=== PATIENT | female | born 1980 | race Caucasian/White ===

== ENCOUNTER 2022-04-02 14:00 | Inpatient (IN) | payer OTHER, SELFPAY ==
[2022-04-02] VITALS (17 sets, daily range): BP systolic 112–133; BP diastolic 66–83; PULSE 66–83; RESP 16–18; TEMP 36.3–37.2; O2SAT 96; BMI 30.9
[2022-04-02] MEDS: LACTATED RINGERS 1000 ML 1,000 ML 125 ML IV (14:23)
[2022-04-02] MEDS: AMPICILLIN 2 GM in 0.9 % SODIUM CHLORIDE Mini-bag 100 ML IVPB (14:23)
--- NOTE | 2022-04-02 14:42 | PM.OBHPLI ---
OB - H&P: HPI Labor/Induction History of Present Illness Time Seen by Provider: 14:32 Date Seen: 04/02/22 Chief Complaint: The patient is a 41 year old 4 para 3 at 41 and 2 weeks gestation dating done by [facility] conception date. Chief complaint: Maternity : 4 Para: 3 Date of last menstrual period: 06/24/21 Estimated date of delivery: 03/31/22 Gestational age based on last menstrual period: 40 Narrative: Raeann Avila is a 41 year old female at 41wks and 2 days based on early ultrasound and date of conception. History of Present Narrative: She [facility]. It essentially confirmed her EDC. She presented for 1st OB visit at 12 weeks 5 days gestation. Labs Blood type: O (+) positive Rubella: immune RPR/VDLR: nonreactive GBS status: positive HBsAG: negative Review of Systems Status of ROS: Reports: 6 or more systems reviewed and unremarkable except as noted in History and below Narrative: Contractions started earlier today have started picking up in intensity Meds Home Medications and Allergies Allergies Allergy/AdvReac Type Severity Reaction Status Date / Time No Known Drug Allergies Allergy Verified 04/02/22 14:45 OB - H&P: Exam Physical Exam: Vital signs: Pulse BP 83 127/66 04/02/22 14:22 04/02/22 14:22 Narrative: G P now 41 at 2 weeks gestation admitted for onset of labor History: regular uncomplicated care. Group B strep positive She is currently intact has received her antibiotics dose 1. Currently walking around the room with IV HEENT: Eyes: no scleral icterus redness Ears: normal external ears Nose: no drainage Neck: normal Heart RRR no murmur Lungs: clear Skin: pink exam she is reported to be 6-7 cm on initial admission exam by nurse. Ext: no swelling Mental status: appropriate OB - Problem Based A/P Additional Plan (1) Spontaneous onset of labor: Status: Acute Plan Expected management. First dose of antibiotics has been given. She plans to have natural delivery. Delivery/Labor/Induction Plan Plan: expectant management
[2022-04-02 15:23] LABS: SARS PCR* Negative SARS-CoV-2 (Negative)
[2022-04-02] MEDS: OXYTOCIN 30 unit/500 ML in NS 30 UNIT/500 ML BAG 300 UNIT IVPB (16:49)
--- NOTE | 2022-04-02 17:12 | PM.OBPRCVD ---
Procedure Delivery date: 04/02/22 Procedure Done: Global Narrative: The patient is a 41 year-old G 4 admitted on 04/02/2022 at 40 Weeks, 2 Days gestation for onset of labor.? Cervical exam on admission was 7 cm with membranes intact in vertex presentation.? Contractions were approximately every [4] minutes.? heart rate demonstrated a category 1 tracing.? SROM occurred at 1641 with clear fluid. ? Labor Analgesia:? None ? Pitocin:? Yes after delivery of infant ? Labor onset:? 04/02/2022 at 12:00 p.m. ? Complete:? 04/02/2022 at 4:43 p.m. ? Pushing:? 04/02/2022 at 4:43 p.m. ? At 16:48 on 04/02/2022 a viable male infant delivered in vertex presentation over intact perineum via spontaneous vaginal delivery.? Infant was placed on maternal abdomen.? Cord was clamped and cut after a 30-60 second delay.? Nose and mouth were bulb suctioned.? weight pending.? 8 at 1 minute and 9 at 5 minutes.? Shoulder dystocia: no.? Nuchal cord: no. ? Placenta delivered spontaneously and complete at 1653 with a 3 vessel cord. ? Mother and infant were stable after delivery. ? Lacerations:? Superficial vaginal and labial bilaterally no repair needed. ? Blood loss: 100 mL. Blood loss measurement type: QBL ? Sponge and needles counts are correct.
[2022-04-02] MEDS: IBUPROFEN 600 MG TABLET PO (19:57)
[2022-04-03 00:30] VITALS: BP 134/76; PULSE 70; RESP 16; TEMP 36.6; O2SAT 97
[2022-04-03] MEDS: ACETAMINOPHEN 500 MG TABLET 1000 MG PO (00:30)
[2022-04-03] MEDS: IBUPROFEN 600 MG TABLET PO ×2 (05:37→17:56)
[2022-04-03 05:45] VITALS: BP 114/79; PULSE 72; RESP 16; TEMP 36.8; O2SAT 97
[2022-04-03 07:22] LABS: Hemoglobin* 10.4 gm/dL (12.0-16.0)
[2022-04-03 07:58] VITALS: BP 107/73; PULSE 66; RESP 16; TEMP 36.4; O2SAT 95
--- NOTE | 2022-04-03 08:13 | P.OBPN_ITS ---
OB - PN:Subj Subjective Time Seen by Provider: 08:13 Date Seen: 04/03/22 Patient comments OB post-: no complaints and pain well controlled [place] infant status: and doing well feeding status: exclusively Narrative: Patient feels things are going well. Passed a few clots yesterday but feels bleeding is more appropriate today. Pain is mostly cramping pain, especially with nursing. OB - PN: Obj Exam Physical Exam: Vital signs: Temp Pulse Resp BP Pulse Ox O2 Del Method 97.6 F 66 16 107/73 95 04/03/22 07:58 04/03/22 07:58 04/03/22 07:58 04/03/22 07:58 04/03/22 07:58 04/03/22 07:58 Constitutional: Constitutional: no acute distress, average body habitus and cooperative Routine Respiratory Exam: Respiratory: Present CTA bilaterally; Absent crackles, rales or wheezes Routine Cardiovascular Exam: Cardiovascular: Present RRR, S1 and S2; Absent murmur Routine Abdominal Exam: Abdominal: Present normal bowel sounds Fundus: Present firm Comments: fundus at 1 below umbilicus Routine Skin Exam: Skin: Absent rash Routine Neurological Exam: Neurological: Present alert and oriented X3 Routine Psychiatric Exam: Psychiatric: Present normal affect and normal thought process OB - PN: Obj Data Labs Labs: Laboratory Results - last 24 hr 04/02/22 04/03/22 14:11 07:04 Hgb 10.4 L SARS-CoV-2 (PCR) Negative SARS-CoV-2 OB - PN: A/P Vaginal Delivery Assessment and Plan (1) Spontaneous onset of labor: Status: Acute Plan day: 1 Plan: routine care Comments: Doing well. Will stay 36 hours given inadequate GBS treatment.
[2022-04-03] MEDS: DOCUSATE SODIUM 100 MG CAPSULE PO (09:06)
[2022-04-03 11:46] VITALS: BP 130/78; PULSE 79; RESP 16; TEMP 36.6; O2SAT 98
[2022-04-03 15:37] VITALS: BP 133/76; PULSE 66; RESP 16; TEMP 36.4; O2SAT 96
[2022-04-03 20:28] VITALS: BP 125/71; PULSE 74; RESP 16; TEMP 36.6; O2SAT 97
[2022-04-04] MEDS: LANOLIN CREAM 1 APPLIC TOPICAL (04:44)
[2022-04-04 04:54] VITALS: BP 119/76; PULSE 67; RESP 16; TEMP 36.5; O2SAT 97
[2022-04-04 07:24] VITALS: BP 116/72; PULSE 67; RESP 16; TEMP 36.6; O2SAT 95
--- NOTE | 2022-04-04 07:58 | PM.OBDSVD1 ---
DS: Providers Provider Time Seen by Provider: 07:58 Date Seen: 04/04/22 Date of admission: 04/02/22 14:00 Primary care physician: Gaby Chapin MD Admitting Clinician: Gaby Chapin MD Attending Physician on discharge: Nubia Lyles MD Date of Discharge: 04/04/22 DS: Diagnosis Discharge Diagnosis (1) (normal spontaneous vaginal delivery): Status: Acute Problem details: Term delivery of viable male infant. Doing well. Exam Const: Vital Signs, click to edit/add: Vital Signs - 24 hr 04/03/22 11:46 04/03/22 15:37 04/04/22 07:24 Temperature 97.8 F 97.5 F L 97.9 F Pulse Rate [Pulse Oximeter] 79 66 67 Respiratory Rate 16 16 16 Blood Pressure [Le ft Arm] 130/78 133/76 116/72 Pulse Oximetry 98 96 95 Oxygen Delivery Me thod Room Air Room Air Room Air 04/03/22 20:28 04/04/22 04:54 Temperature 98 F 97.7 F Pulse Rate [Pulse Oximeter] 74 67 Respiratory Rate 16 16 Blood Pressure [Le ft Arm] 125/71 119/76 Pulse Oximetry 97 97 Oxygen Delivery Me thod Room Air Room Air Common normals: no apparent distress and oriented x3 General appearance: cooperative and well kempt HENMT: Common normals: normocephalic Head and scalp: normocephalic Chest: Common normals: inspection of chest normal Resp: Common normals: normal respiratory effort Cardio: Common normals: regular rate Rate: regular rate GI: Common normals: soft to palpation and non-tender Palpation: soft : Uterus: U/1 Extremity: Common normals: normal to inspection Other: trace edema in lower extremities bilaterally Neuro: Common normals: oriented x3 Gait (neuro): normal gait Psych: Appearance: grossly normal and well kempt Skin: Common normals: no rashes or lesions noted General skin exam: no rashes or lesions noted OB - DS: Summary Hospital Course Hospital Course: The patient is a 41 year old G 4 P 4 at 41.2 weeks gestation that was admitted to the Center on 04/02/22 for spontaneous labor. She had an uncomplicated vaginal delivery. She delivered a viable male . She is breast feeding. the patient has done well. Patient did pass 1 larger clot (she describes larger than golf ball x 1) but bleeding has been minimal since. Peripartum Data delivery method: Vaginal Laceration description: None complications: none [place] Infant Gender: Male Infant Discharge Plan: Home Time Spent with Patient Time attestation: Total time spent providing and/or coordinating discharge services: Discharge Plan Discharge Disposition: Home, Self-Care Date of Admission: 04/02/22 14:00 Attending Provider on Discharge: Nubia Lyles Primary Care Provider: Gaby Chapin Condition: Stable Anticipated Discharge Date/Time: 04/04/22 07:26 Discharge Medications: No Action No Known Home Medications Discharge Orders: Discharge Order (Routine); Ordered 04/04/22 Ordered By: Nubia Lyles Patient Education: OB Vaginal/Breast Feeding Activity Level: Activity as Tolerated Discharge Diet: Regular Follow Up Appointments: Gaby Chapin MD [Primary Care Provider] - (Follow up with Dr. Chapin at 6 weeks . ) Forms: [facility] Info Instructions Discharge Comments: Please continue vitamin while breast feeding. Use tylenol and ibuprofen as needed for pain management.
== END 2022-04-04 08:30 | disposition home or self-care (01) | DRG 807 ==
LOC: OB OUT 14:00 → OB 14:00
PROVIDERS: Admitting Provider Family Medicine; PCP Family Medicine; Visit Provider Family Medicine
DX: O80 Encounter for full-term uncomplicated delivery (principal); Z37.0 Single live birth; Z3A.41 41 weeks gestation of pregnancy
CPT/HCPCS: 36415; 85018; 87635; A9270; J0290; J7120